=== PATIENT | male | born 1990 | race Hispanic/Latino ===

== ENCOUNTER 2017-08-22 17:07 | Emergency (ER) | payer OTHER ==
[~2017-08-22] VITALS: Ht 452.1 cm; Wt 78.0 kg
[2017-08-22] MEDS ORDERED: TORADOL PO (18:01)
[2017-08-22 18:10] VITALS: BP 134/77
== END 2017-08-22 18:10 | disposition home or self-care (01) | DRG 605 ==
LOC: ED 17:07
DX: S50.02XA Contusion of left elbow, initial encounter (principal); S53.402A Unspecified sprain of left elbow, initial encounter; W11.XXXA Fall on and from ladder, initial encounter; Y93.89 Activity, other specified; Y92.73 Farm field as the place of occurrence of the external cause

== ENCOUNTER 2017-08-28 10:17 | Emergency (ER) | payer OTHER ==
[~2017-08-28] VITALS: Ht 452.1 cm; Wt 79.8 kg
[~2017-08-28 10:17] MED LIST: TORADOL PO
[2017-08-28 12:33] LABS: HEMATOCRIT 43.7 % (39.0-50.0); HEMOGLOBIN 14.7 g/dl (14.0-18.0); IMMATURE GRANULOCYTES 0.1 % (0.0-1.0); MEAN CELL VOLUME 89.7 fL CALC (80.0-100.0); MEAN CORPUSCULAR HGB 30.2 pG CALC (26.0-32.0); MEAN CORPUSCULAR HGB CONC 33.6 g/L CALC (32.0-36.0); NEUT# 4.02 thou/uL (1.82-7.42); RED BLOOD COUNT 4.87 mill/uL (4.70-6.10); RED CELL DISTRI WIDTH 13.6 % (11.5-15.5)
[2017-08-28 12:48] LABS: ANION GAP 18 (6-22 (CALC)); BUN 16 mg/dL (9-20); BUN/CREATININE RATIO 22 (12-20 (CALC)); CALCIUM 9.6 mg/dL (8.4-10.2); CARBON DIOXIDE 23 mmol/l (22-30); CHLORIDE 107 mmol/l (95-108); CREATININE 0.8 mg/dL (0.7-1.3); GFR > 60 ML/MIN (>=60 (CALC)); GFR FOR AFR.AMER. > 60 ML/MIN (>=60 (CALC)); GLUCOSE 92 mg/dL (75-110); POTASSIUM 4.5 mmol/l (3.5-5.1); SODIUM 143 mmol/l (137-146)
[2017-08-28] MEDS ORDERED: MOTRIN400 MG PO (14:35)
[2017-08-28] MEDS ORDERED: CYCLOBENZAPRINE5 MG PO (14:35)
[2017-08-28 14:40] VITALS: BP 130/65
== END 2017-08-28 14:50 | disposition home or self-care (01) | DRG 556 ==
LOC: ED 10:17
PROVIDERS: Family Medicine
DX: M25.522 Pain in left elbow (principal); M79.1 Myalgia; M79.632 Pain in left forearm; R22.32 Localized swelling, mass and lump, left upper limb; W19.XXXD Unspecified fall, subsequent encounter
CPT/HCPCS: Q9967